=== PATIENT | male | born 1985 | race African-American/Black ===

== ENCOUNTER 2020-07-31 23:03 | Emergency (ER) | payer SELFPAY ==
[~2020-07-31] VITALS: Ht 185.4 cm; Wt 118.2 kg
[2020-07-31 23:30] LABS: BASO # 0.1 x10^3/uL (0.0-0.2); BASO % 1 % (0-3); EOS # 0.1 x10^3/uL (0.0-0.7); EOS % 2 % (0-3); HEMATOCRIT 44.3 % (39.0-53.0); HEMOGLOBIN 15.5 g/dL (13.0-17.5); LYMPH # 2.8 x10^3/uL (1.0-4.8); LYMPH % 41 % (24-48); MEAN CORPUSCULAR HEMOGLOBIN 26 pg (25-35); MEAN CORPUSCULAR HGB CONC 35 g/dL (31-37); MEAN CORPUSCULAR VOLUME 74 fL (79-100); MONO # 0.6 x10^3/uL (0.0-1.1); MONO % 9 % (0-9); NEUT # 3.3 x10^3/uL (1.8-7.7); NEUT % 47 % (31-73); PLATELET COUNT 475 x10^3/uL (140-400); RED BLOOD COUNT 6.02 x10^6/uL (4.30-5.70); WHITE BLOOD COUNT 6.9 x10^3/uL (4.0-11.0)
[2020-07-31 23:43] LABS: CREATININE 1.6 mg/dL (0.7-1.3); GFR 49.2
--- NOTE | 2020-07-31 23:44 | RAD ---
XR CHEST 1V Clinical Indication: Reason: SOA / Comparison: [place] chest [place] 10, 2020, [facility] [place] Findings: Left costophrenic angle is excluded. The cardiomediastinal silhouette is normal. Lungs are clear. The re is no pneumothorax. No pleural effusion is appreciated. No acute bone abnormality. IMPRESSION: No acute cardiopulmonary process. Electronically signed by: Kieran Conteh MD (07/31/2020 11:42 PM) [facility]
[2020-07-31] MEDS ORDERED: CONTRAST GIVEN. MC PRN (23:45)
[2020-07-31] MEDS ORDERED: IV NORMAL SALINE 1000ML BAG 1,000 ML IV ONE (23:45)
[2020-07-31 23:50] LABS: ALBUMIN 3.6 g/dL (3.4-5.0); ALBUMIN/GLOBULIN RATIO 0.7 (1.0-1.7); TOTAL BILIRUBIN 0.2 mg/dL (0.2-1.0); TOTAL PROTEIN 8.9 g/dL (6.4-8.2)
[2020-07-31 23:56] LABS: INFLUENZA A PATIENT NEGATIVE (NEGATIVE); INFLUENZA B PATIENT NEGATIVE (NEGATIVE)
--- NOTE | 2020-08-01 00:20 | EKG ---
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
[2020-08-01] MEDS ORDERED: IOHEXOL 350 MG/ML 100 ML VIAL. IV ONE (00:30)
--- NOTE | 2020-08-01 00:47 | PHYS DOC ---
Past Medical History Past Medical History: Anxiety Past Surgical History: No Surgical History Smoking Status: Former Smoker Additional Information: QUIT SMOKING "COLD TURKEY" 1 MONTH AGO Alcohol Use: Sober Additional Information: QUIT DRINKING "COLD TURKEY" 1 MONTH AGO Social History Narrative: REPORTS LAST SMOKED POT 3 MONTHS AGO AT THAT TIME IT WAS LACED WITH COCAINE General Adult EDM: Chief Complaint: MULTIPLE COMPLAINTS HPI: HPI: Patient is a 34 year old [f__sex] who presents with [] Review of Systems: Review of Systems: Constitutional: Denies fever or chills. [] Eyes: Denies change in visual acuity. [] HENT: Denies nasal congestion or sore throat. [] Respiratory: Denies cough or shortness of breath. [] Cardiovascular: Denies chest pain or edema. [] GI: Denies abdominal pain, nausea, vomiting, bloody stools or diarrhea. [] : Denies dysuria. [] Musculoskeletal: Denies back pain or joint pain. [] Integument: Denies rash. [] Neurologic: Denies headache, focal weakness or sensory changes. [] Endocrine: Denies polyuria or polydipsia. [] Lymphatic: Denies swollen glands. [] Psychiatric: Denies depression or anxiety. [] Heart Score: Risk Factors: Risk Factors: DM, Current or recent (<one month) smoker, HTN, HLP, family history of CAD, obesity. Risk Scores: Score 0 - 3: 2.5% MACE over next 6 weeks - Discharge Home Score 4 - 6: 20.3% MACE over next 6 weeks - Admit for Clinical Observation Score 7 - 10: 72.7% MACE over next 6 weeks - Early Invasive Strategies Current Medications: Current Medications Medications (Trade) Dose Ordered Sig/Smitha Start Time Stop Time Status Last Admin Dose Admin Info (CONTRAST GIVEN -- Rx MONITORING) 1 each PRN DAILY PRN 07/31/20 23:45 08/02/20 23:44 Iohexol (Omnipaque 350 Mg/ml) 80 ml 1X ONCE 08/01/20 00:30 08/01/20 00:31 DC 08/01/20 00:31 80 ML Sodium Chloride 1,000 ml @ 1,000 mls/hr 1X ONCE 07/31/20 23:45 08/01/20 00:44 DC 07/31/20 23:54 1,000 MLS/HR Allergies: Allergies: Allergies Coded Allergies Type Severity Reaction Last Updated Verified No Known Drug Allergies 07/31/20 No Physical Exam: PE: Constitutional: Well developed, well nourished, no acute distress, non-toxic appearance. [] HENT: Normocephalic, atraumatic, bilateral external ears normal, oropharynx moist, no oral exudates, nose normal. [] Eyes: PERRLA, EOMI, conjunctiva normal, no discharge. [] Neck: Normal range of motion, no tenderness, supple, no stridor. [] Cardiovascular:Heart rate regular rhythm, no murmur [] Lungs & Thorax: Bilateral breath sounds clear to auscultation [] Abdomen: Bowel sounds normal, soft, no tenderness, no masses, no pulsatile masses. [] Skin: Warm, dry, no erythema, no rash. [] Back: No tenderness, no CVA tenderness. [] Extremities: No tenderness, no cyanosis, no clubbing, ROM intact, no edema. [] Neurologic: Alert and oriented X 3, normal motor function, normal sensory fu nction, no focal deficits noted. [] Psychologic: Affect normal, judgement normal, mood normal. [] Current Patient Data: Labs: Laboratory Tests Test 07/31/20 23:10 07/31/20 23:20 Influenza Type A Antigen Negative (NEGATIVE) Influenza Type B Antigen Negative (NEGATIVE) White Blood Count 6.9 x10^3/uL (4.0-11.0) Red Blood Count 6.02 x10^6/uL (4.30-5.70) H Hemoglobin 15.5 g/dL (13.0-17.5) Hematocrit 44.3 % (39.0-53.0) Mean Corpuscular Volume 74 fL (79-100) L Mean Corpuscular Hemoglobin 26 pg (25-35) Mean Corpuscular Hemoglobin Concent 35 g/dL (31-37) Red Cell Distribution Width 13.0 % (11.5-14.5) Platelet Count 475 x10^3/uL (140-400) H Neutrophils (%) (Auto) 47 % (31-73) Lymphocytes (%) (Auto) 41 % (24-48) Monocytes (%) (Auto) 9 % (0-9) Eosinophils (%) (Auto) 2 % (0-3) Basophils (%) (Auto) 1 % (0-3) Neutrophils # (Auto) 3.3 x10^3/uL (1.8-7.7) Lymphocytes # (Auto) 2.8 x10^3/uL (1.0-4.8) Monocytes # (Auto) 0.6 x10^3/uL (0.0-1.1) Eosinophils # (Auto) 0.1 x10^3/uL (0.0-0.7) Basophils # (Auto) 0.1 x10^3/uL (0.0-0.2) Sodium Level 137 mmol/L (136-145) Potassium Level 4.0 mmol/L (3.5-5.1) Chloride Level 100 mmol/L (98-107) Carbon Dioxide Level 23 mmol/L (21-32) Anion Gap 14 (6-14) Blood Urea Nitrogen 13 mg/dL (8-26) Creatinine 1.6 mg/dL (0.7-1.3) H Estimated GFR (Cockcroft-Gault) 49.2 BUN/Creatinine Ratio 8 (6-20) Glucose Level 245 mg/dL (70-99) H Calcium Level 9.0 mg/dL (8.5-10.1) Magnesium Level 2.0 mg/dL (1.8-2.4) Total Bilirubin 0.2 mg/dL (0.2-1.0) Aspartate Amino Transferase (AST) 33 U/L (15-37) Alanine Aminotransferase (ALT) 91 U/L (16-63) H Alkaline Phosphatase 90 U/L (46-116) Creatine Kinase 246 U/L (39-308) Creatine Kinase MB (Mass) 0.8 ng/mL (0.0-3.6) Creatine Kinase MB Relative Index 0.3 % (0-4) Troponin I Quantitative < 0.017 ng/mL (0.000-0.055) Total Protein 8.9 g/dL (6.4-8.2) H Albumin 3.6 g/dL (3.4-5.0) Albumin/Globulin Ratio 0.7 (1.0-1.7) L Lipase 136 U/L (73-393) Laboratory Tests 07/31/20 23:20 Laboratory Tests 07/31/20 23:20 Vital Signs: Vital Signs Date Time Temp Pulse Resp B/P (MAP) Pulse Ox O2 Delivery O2 Flow Rate FiO2 07/31/20 23:06 98.3 116 16 162/68 (99) 99 Room Air 98.3 EKG: EKG: @2317 Sinus tachycardia at 119bpm, NO ST elevation, t wave inversion and aVF, w andering baseline Radiology/Procedures: Radiology/Procedures: PROCEDURE: CHEST AP ONLY XR CHEST 1V Clinical Indication: Reason: SOA / Comparison: AP chest July 10, 2020, [facility] [place]. Findings: Left costophrenic angle is excluded. The cardiomediastinal silhouette is normal. Lungs are clear. There is no pneumothorax. No pleural effusion is appreciated. No acute bone abnormality. IMPRESSION: No acute cardiopulmonary process. Electronically signed by: Kieran Conteh MD (07/31/2020 11:42 PM) [facility] Course & Med Decision Making: Course & Med Decision Making Pertinent Labs and Imaging studies reviewed. (See chart for details) [] Dragon Disclaimer: Dragon Disclaimer: This electronic medical record was generated, in whole or in part, using a voice recognition dictation system. Departure Departure Impression: Primary Impression: Suspected 2019 novel coronavirus infection Additional Impressions: Pulmonary nodule Hematochezia Disposition: 01 DC HOME SELF CARE/HOMELESS Condition: STABLE Referrals: NO PCP (PCP) DESIREE CARLIN MD Patient Instructions: Pulmonary Nodule, Muik-ug-Lron, Rectal Bleeding, Easy-to- Read, Viral Syndrome Additional Instructions: You have been tested for or diagnosed with COVID-19. It is an infection caused by a new type of coronavirus. COVID-19 will cause cold-like or mild flu symptoms in most. It can cause more severe symptoms like problems breathing in some. There is no treatment for COVID-19. The body will clear the infection over time. Self-care will help to ease discomfort. Steps to Take: Self-Care Rest as needed. Healthy habits may help you feel better. Steps include: Choose healthy foods including fruits and vegetables. Drink water throughout the day. Get plenty of sleep each night. If you smoke, try to quit. It may ease breathing. Avoid alcohol. Keep Others Healthy The virus can spread to others. Droplets are released every time you sneeze or cough. The droplets can get into the mouth, nose, or eyes of people near you and lead to infection. To lower the chances of spreading COVID-19 to others: Stay at home until your doctor has said it is safe to leave. If you tested positive this will mean staying isolated until both of the following are true: At least 7 days have passed since the start of illness. You are free of fever for at least 72 hours without the use of medicine. During this time: - Avoid public areas, events, or transportation. Do not return to work or school until your doctor has said it is safe to do so. - Call ahead if you need to go to a medical center. Let them know you may have COVID-19. It will help them guide you where to go. They may also ask you to wear a facemask when you come to the office. - If you call for emergency medical services, let them know you may have COVID- 19. While at home: - Try to avoid close contact with others. Stay about 6 feet away. - If possible, spend most of your time in a separate room from others. - Use a face mask if you will be in close contact with others such as sharing a room or vehicle. - Have someone wipe down common surfaces in the home. Use household staff psychologist every day on areas like doorknobs, counters, or sinks. - Cough or sneeze into a tissue. Throw the tissue away right after use. If a tissue is not available, cough or sneeze into your elbow. - Wash your hands often. Wash them after sneezing or coughing. Use soap and water and wash for at least 20 seconds. Alcohol based hand welt stitch cleaner can be used if soap and water is not available. - Do not prepare food for others. Avoid sharing personal items like forks, spoons, or toothbrushes. - Avoid close contact with pets while you are sick. There is no evidence of the virus passing to pets. This is a safety step until more is known about this virus. Isolation can be frustrating. Social interaction can help. Keep in touch with friends and family through phone and tech options. You can still interact with others in your home, just keep a safe distance of about 6 feet. Follow-up: Your doctors office will check in with you to see if there are any changes in your health. You may be asked to keep track of symptoms to share with them. They will also let you know when you are clear to be in public again. Problems to Look Out For: Contact your doctor if your recovery is not going as you expect. Get emergency care if you have problems such as: - Trouble breathing - Nonstop chest pain or pressure - Changes in awareness, confusion, or problems waking - Lips or face have bluish color - Worsening of symptoms If you think you have an emergency, call for emergency medical services right away. As taken from [facility] Hydrocortisone Acetate (ANUSOL-HC) 25 Mg Supp.rect 1 SUPP RC BID for 7 Days, #14 SUPP 0 Refills Prov: YELENA STEVENS DO 08/01/20 Azithromycin (ZITHROMAX) 250 Mg Tablet 1 PKG PO UD, #6 TAB Take 2 tablets on day 1 and then 1 tablet each day for the next 4 days as directed Prov: YELENA STEVENS DO 08/01/20 YELENA STEVENS DO Aug 01, 2020 00:47
--- NOTE | 2020-08-01 00:55 | RAD ---
PQRS Compliance Statement: One or more of the following individualized dose reduction techniques were utilized for this examinat ion: 1. Automated exposure control 2. Adjustment of the mA and/or kV according to patient size 3. Use of iterative reconstruction technique CTA CHEST_ABDOMEN_AND PELVIS Clinical Indication: Reason: pleuritic pain eval for PE, abdominal pain and hematochezia / Comparison: None. Technique: Helical CT of the chest was performed after the administration of 80 cc of Omnipaque 350 intravenous contrast according to PE protocol. Axial and coronal reconstructions were obtained. 3-D MIP images were constructed to better evaluate the pulmonary arteries. Helical CT imaging continued in the abdomen and pelvis. Findings: Pulmonary arteries are adequately opacified. There is no evidence of pulmonary embolism. There is no thoracic aortic dissection. The great vessels are normal caliber. There is mild left axil yogesh adenopathy. There are mildly enlarged bilateral hilar lymph nodes. Cardiac size normal, no peric ardial effusion. No pleural abnormality is seen. The central airways are patent. There is a 4 mm noncalcified nodule i n the left lower lobe, image 95. Gallbladder is contracted. The liver, spleen, pancreas, and adrenal glands are normal. The abdominal aorta is normal caliber. There is no hydronephrosis. The stomach is mildly distended with heterogeneous fluid, otherwise normal. There is small fat-contai cuco periumbilical hernia. There is no dilated small bowel. There is mild sigmoid colon diverticulosi s. There are a few other diverticula of the more proximal colon. The appendix is normal. No colon wal l thickening is identified. No abdominal adenopathy. The urinary bladder is mostly decompressed. The prostate and seminal vesicles are normal. There is no pelvic free fluid. Thoracolumbar spine alignment is maintained. IMPRESSION: 1. There is no pulmonary embolus. 2. There is mild left axillary and bilateral hilar adenopathy. Recommend CT chest follow-up in 3 mon ths. 3. There is a 4 mm noncalcified nodule in the left lower lobe. Consider CT chest follow-up in 12 mon ths if patient has risk factors for lung malignancy, otherwise no follow-up is required per Fleischne r Society guidelines. 4. No acute abdominal or pelvic abnormality. 5. Mild sigmoid colon diverticulosis. Electronically signed by: Kieran Conteh MD (08/01/2020 12:52 AM) [facility]
[2020-08-01] MEDS ORDERED: HYDR25SU18 RC (01:49)
[2020-08-01] MEDS ORDERED: AZIT250T PO (01:49)
[2020-08-01 02:04] VITALS: BP 129/83
[2020-08-01] MEDS ORDERED: DEXAMETHASONE 4 MG TABLET PO ONE (02:15)
--- NOTE | 2020-08-02 10:12 | NUR ---
IP: Attempted to contact pt concerning COVID results. No answer, left a voicemail to return the call.
--- NOTE | 2020-08-02 10:37 | NUR ---
IP: Pt returned call and I informed him of negative COVID test. Pt verbalized understanding.
== END 2020-08-01 02:12 | disposition home or self-care (01) ==
LOC: ER 23:03
DX: R91.1 Solitary pulmonary nodule (principal); Z20.822 Contact with and (suspected) exposure to COVID-19; K92.1 Melena; R05 Cough; F41.9 Anxiety disorder, unspecified; Z87.891 Personal history of nicotine dependence
CPT/HCPCS: 36415; 71045; 71275; 74177; 80053; 82553; 83690; 83735; 84484; 85025; 87804; 93005; 96360; 99285; C9803; J7030; Q9967; U0003; U0005

== ENCOUNTER 2021-03-03 17:31 | Emergency (ER) | payer SELFPAY ==
[~2021-03-03] VITALS: Ht 185.4 cm; Wt 113.6 kg
[~2021-03-03 17:31] MED LIST: AZIT250T PO; HYDR25SU18 RC
[2021-03-03 18:15] LABS: BASO % 1 % (0-3); EOS # 0.1 x10^3/uL (0.0-0.7); EOS % 3 % (0-3); HEMATOCRIT 42.9 % (39.0-53.0); HEMOGLOBIN 14.7 g/dL (13.0-17.5); LYMPH # 2.2 x10^3/uL (1.0-4.8); LYMPH % 44 % (24-48); MEAN CORPUSCULAR HEMOGLOBIN 25 pg (25-35); MEAN CORPUSCULAR HGB CONC 34 g/dL (31-37); MEAN CORPUSCULAR VOLUME 74 fL (79-100); MONO # 0.4 x10^3/uL (0.0-1.1); MONO % 8 % (0-9); NEUT # 2.2 x10^3/uL (1.8-7.7); NEUT % 45 % (31-73); PLATELET COUNT 363 x10^3/uL (140-400); RED BLOOD COUNT 5.79 x10^6/uL (4.30-5.70); RED CELL DISTRIBUTION WIDTH 13.7 % (11.5-14.5)
[2021-03-03] MEDS ORDERED: fentaNYL PF VIAL 100 MCG/2 ML VIAL IV PRN (18:15)
[2021-03-03 18:26] LABS: CALCIUM 8.1 mg/dL (8.5-10.1); CREATININE 1.1 mg/dL (0.7-1.3); GFR 91.1; POTASSIUM 3.8 mmol/L (3.5-5.1)
--- NOTE | 2021-03-03 18:28 | RAD ---
EXAMINATION: Chest radiograph. VIEWS: Single AP view of the chest COMPARISON: 07/31/2020 INDICATION:35 years, Male, chest pain. FINDINGS: Normal cardiomediastinal silhouette. No focal consolidation. No pleural effusion or pneumothorax. No acute osseous process. IMPRESSION: No acute cardiopulmonary process. Electronically signed by: Jeremy Meade DO (03/03/2021 6:26 PM) [facility]
[2021-03-03 18:31] LABS: ALBUMIN 3.7 g/dL (3.4-5.0); MAGNESIUM 1.7 mg/dL (1.8-2.4); TOTAL BILIRUBIN 0.5 mg/dL (0.2-1.0); TOTAL PROTEIN 7.5 g/dL (6.4-8.2)
[2021-03-03] MEDS ORDERED: HYDROcodone/APAP 5/325MG 1 TAB TABLET PO ONE (19:00)
--- NOTE | 2021-03-03 19:22 | PHYS DOC ---
Past Medical History Past Medical History: Anxiety Past Surgical History: No Surgical History Smoking Status: Former Smoker Alcohol Use: Sober Drug Use: Cocaine, Marijuana General Adult EDM: Chief Complaint: CHEST PAIN HPI: HPI: Patient is a 35 year old male who presents with persistent chest pain since this morning. Patient rates his left-sided chest pain 7/10 sharp and intermittent. He states his pain is worse when supine, worse with movement of his left upper extremity. He reports associated intermittent palpitations, not related to his pain. He denies radiation of pain, diaphoresis, nausea, vomiting and weakness. Patient was evaluated at [facility] this morning, who reportedly were concerned for pericarditis potentially. He was given a full cardiac work-up in that emergency department. Patient reports he was given an injection of Toradol and discharged home with strict return precautions for return of symptoms. Patient denies having been vaccinated against COVID-19. He has no other complaints at this time. Review of Systems: Review of Systems: Constitutional: Denies fever or chills. Respiratory: Denies cough or shortness of breath. Cardiovascular: See HPI GI: Denies abdominal pain, nausea, vomiting, bloody stools or diarrhea. : Denies dysuria or hematuria. Musculoskeletal: Denies back pain or joint pain. Integument: Denies rash or other skin lesion. Neurologic: Denies headache, focal weakness or sensory changes. Heart Score: C/O Chest Pain: Yes HEART Score for Chest Pain: HEART Score for Chest Pain Response (Comments) Value History Slighlty/Non-Suspicious 0 ECG Normal 0 Age < 45 0 Risk Factors No Risk Factors 0 Troponin < Normal Limit 0 Total 0 Risk Factors: Risk Factors: none Risk Scores: Score 0 - 3: 2.5% MACE over next 6 weeks - Discharge Home Score 4 - 6: 20.3% MACE over next 6 weeks - Admit for Clinical Observation Score 7 - 10: 72.7% MACE over next 6 weeks - Early Invasive Strategies Current Medications: Current Medications Medications (Trade) Dose Ordered Sig/Smitha Start Time Stop Time Status Last Admin Dose Admin Acetaminophen/ Hydrocodone Bitart (Lortab 5/325) 1 tab 1X ONCE 03/03/21 19:00 03/03/21 19:03 DC Fentanyl Citrate (Fentanyl 2ml Vial) 50 mcg PRN Q15MIN PRN 03/03/21 18:15 03/03/21 19:00 ID Allergies: Allergies: Allergies Coded Allergies Type Severity Reaction Last Updated Verified No Known Drug Allergies 07/31/20 No Physical Exam: PE: Constitutional: Well developed, well nourished, no acute distress, non-toxic appearance. Neck: Normal range of motion, no tenderness, no stridor, no JVD. Cardiovascular: Heart rate regular rhythm, no murmur. Lungs & Thorax: Bilateral breath sounds clear to auscultation. Abdomen: Bowel sounds normal, soft, no tenderness, no masses, no pulsatile masses. Skin: Warm, dry, no erythema, no rash. Extremities: No tenderness, no cyanosis, no clubbing, ROM intact, no edema. Current Patient Data: Labs: Laboratory Tests Test 03/03/21 18:00 White Blood Count 5.0 x10^3/uL (4.0-11.0) Red Blood Count 5.79 x10^6/uL (4.30-5.70) H Hemoglobin 14.7 g/dL (13.0-17.5) Hematocrit 42.9 % (39.0-53.0) Mean Corpuscular Volume 74 fL (79-100) L Mean Corpuscular Hemoglobin 25 pg (25-35) Mean Corpuscular Hemoglobin Concent 34 g/dL (31-37) Red Cell Distribution Width 13.7 % (11.5-14.5) Platelet Count 363 x10^3/uL (140-400) Neutrophils (%) (Auto) 45 % (31-73) Lymphocytes (%) (Auto) 44 % (24-48) Monocytes (%) (Auto) 8 % (0-9) Eosinophils (%) (Auto) 3 % (0-3) Basophils (%) (Auto) 1 % (0-3) Neutrophils # (Auto) 2.2 x10^3/uL (1.8-7.7) Lymphocytes # (Auto) 2.2 x10^3/uL (1.0-4.8) Monocytes # (Auto) 0.4 x10^3/uL (0.0-1.1) Eosinophils # (Auto) 0.1 x10^3/uL (0.0-0.7) Basophils # (Auto) 0.0 x10^3/uL (0.0-0.2) Sodium Level 136 mmol/L (136-145) Potassium Level 3.8 mmol/L (3.5-5.1) Chloride Level 101 mmol/L (98-107) Carbon Dioxide Level 28 mmol/L (21-32) Anion Gap 7 (6-14) Blood Urea Nitrogen 9 mg/dL (8-26) Creatinine 1.1 mg/dL (0.7-1.3) Estimated GFR (Cockcroft-Gault) 91.1 BUN/Creatinine Ratio 8 (6-20) Glucose Level 93 mg/dL (70-99) Calcium Level 8.1 mg/dL (8.5-10.1) L Magnesium Level 1.7 mg/dL (1.8-2.4) L Total Bilirubin 0.5 mg/dL (0.2-1.0) Aspartate Amino Transferase (AST) 19 U/L (15-37) Alanine Aminotransferase (ALT) 44 U/L (16-63) Alkaline Phosphatase 68 U/L (46-116) Troponin I High Sensitivity 6 ng/L (4-75) NI-Urb-Y-Type Natriuretic Peptide 16 pg/mL (0-124) Total Protein 7.5 g/dL (6.4-8.2) Albumin 3.7 g/dL (3.4-5.0) Albumin/Globulin Ratio 1.0 (1.0-1.7) Lipase 77 U/L (73-393) Laboratory Tests 03/03/21 18:00 Laboratory Tests 03/03/21 18:00 Vital Signs: Vital Signs Date Time Temp Pulse Resp B/P (MAP) Pulse Ox O2 Delivery O2 Flow Rate FiO2 03/03/21 17:59 98.3 56 16 135/64 (87) 99 Room Air 98.3 EKG: EKG: EKG Interpreted by Dr. Freeman at 1746: Regular rate and rhythm 51 bpm with no ectopic beats. No concerning ST-T wave changes. Regular QR interval. Radiology/Procedures: Radiology/Procedures: PROCEDURE: PORTABLE CHEST 1V EXAMINATION: Chest radiograph. VIEWS: Single AP view of the chest COMPARISON: 07/31/2020 INDICATION:35 years, Male, chest pain. FINDINGS: Normal cardiomediastinal silhouette. No focal consolidation. No pleural effusion or pneumothorax. No acute osseous process. IMPRESSION: No acute cardiopulmonary process. Electronically signed by: Jeremy Meade DO (03/03/2021 6:26 PM) [facility] Course & Med Decision Making: Course & Med Decision Making Pertinent Labs and Imaging studies reviewed. (See chart for details) Per patient his cardiac work-up this morning was not concerning to the physicians at [facility]. Patient will be given another work-up today including EKG, chest x-ray, troponin, proBNP, CBC, CMP with lipase. Work-up today is largely unremarkable. Patient will be instructed to rest and use [id number] ibuprofen and/or acetaminophen for pain control. 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 Patient understands and is agreeable to discharge plan. Dragon Disclaimer: DragAlertaPhone Disclaimer: This electronic medical record was generated, in whole or in part, using a voice recognition dictation system. Departure Departure Impression: Primary Impression: Left-sided chest wall pain Disposition: HOME / SELF CARE / HOMELESS Condition: STABLE Referrals: NO PCP (PCP) RENITA ROSE MD Patient Instructions: Chest Wall Pain, [id number] Additional Instructions: Your work-up today was not concerning for any acute cardiac pathology. You may use ibuprofen OR naproxen alternating with Tylenol every 4 hours for your discomfort (DO NOT combine naproxen and ibuprofen). You are provided with contact information for outpatient cardiology, should your symptoms persist. Return to the emergency department if you have new symptoms including lightheadedness, nausea/vomiting, chest pressure or worsening pain. ROZINA PANDYA Mar 03, 2021 19:22
[2021-03-03 20:01] VITALS: BP 157/77
--- NOTE | 2021-03-04 06:48 | EKG ---
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
== END 2021-03-03 20:00 | disposition home or self-care (01) ==
LOC: ER 17:31
DX: R07.89 Other chest pain (principal); F41.9 Anxiety disorder, unspecified; Z87.891 Personal history of nicotine dependence
CPT/HCPCS: 36415; 71045; 80053; 83690; 83735; 83880; 84484; 85025; 93005; 99285-25